=== PATIENT | female | born 1985 | race Caucasian/White ===

== ENCOUNTER 2018-02-09 20:46 | Emergency (ER) | payer BC ==
[2018-02-09 21:01] VITALS: BP 130/95
--- NOTE | 2018-02-09 21:14 | EDM.PDOC ---
ED HPI GENERAL MEDICAL PROBLEM - General Chief Complaint: Skin Complaint Stated Complaint: BUG BIT Time Seen by Provider: 02/09/18 21:03 - History of Present Illness INITIAL COMMENTS - FREE TEXT/NARRATIVE: HISTORY AND PHYSICAL: History of present illness: Patient 32-year-old female presents with concern of possible insect bite to her left forearm with erythema and warmth over the last 24-48 hours. There's been no fever no other trauma or concern patient reports allergies to sulfa Review of systems: As per history of present illness and below otherwise all systems reviewed and negative. Past medical history: As per history of present illness and as reviewed below otherwise noncontributory. Surgical history: As per history of present illness and as reviewed below otherwise noncontributory. Social history: No reported history of drug or alcohol abuse. Family history: As per history of present illness and as reviewed below otherwise noncontributory. Physical exam: HEENT: Atraumatic, normocephalic, pupils reactive, negative for conjunctival pallor or scleral icterus, mucous membranes moist, throat clear, neck supple, nontender, trachea midline. Lungs: Clear to auscultation, breath sounds equal bilaterally, chest nontender. Heart: S1S2, regular, negative for clicks, rubs, or JVD. Abdomen: Soft, nondistended, nontender. Negative for masses or hepatosplenomegaly. Negative for costovertebral tenderness. Pelvis: Stable nontender. Genitourinary: Deferred. Rectal: Deferred. Extremities: Left forearm he has an excoriated area volar aspect with surrounding erythema is actually looks slightly improved from a picture prior there is no significant induration or fluctuance is mild warmth to the touch Neuro: Awake, alert, oriented. Cranial nerves II through XII unremarkable. Cerebellum unremarkable. Motor and sensory unremarkable throughout. Exam nonfocal. Diagnostics: None Therapeutics: None Impression: #1 cellulitis left forearm Definitive disposition and diagnosis as appropriate pending reevaluation and review of above. 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: Psychiatric History: Reports: Anxiety, Depression Immunologic History: Reports: None Other Immunologic History: MRSA positive in the past, states has nasal swab recently and was negative - Infectious Disease History Infectious Disease History: Reports: Chicken Pox - Past Surgical History Head Surgeries/Procedures: Reports: None HEENT Surgical History: Reports: Oral Surgery Female Surgical History: Reports: Breast Implant, Breast Reduction, Other ( See Below) Other Female Surgeries/Procedures: vicki rondon Social & Family History - Tobacco Use Smoking Status *Q: Current Every Day Smoker Years of Tobacco use: 6 Packs/Tins Daily: 0.5 - Caffeine Use Caffeine Use: Reports: Coffee - Recreational Drug Use Recreational Drug Use: Yes Drug Use in Last 12 Months: No ED ROS GENERAL - Review of Systems Review Of Systems: ROS reveals no pertinent complaints other than HPI. ED EXAM, SKIN/RASH Exam: See Below (See dictation) Course - Vital Signs Last Recorded V/S: Last Vital Signs Temp 36.2 C 02/09/18 20:58 Pulse 95 02/09/18 20:58 Resp 12 02/09/18 20:58 BP 130/95 H 02/09/18 20:58 Pulse Ox 95 02/09/18 20:58 Departure - Departure Time of Disposition: 21:14 Disposition: Home, Self-Care 01 Condition: Good Clinical Impression: Cellulitis - Discharge Information *PRESCRIPTION DRUG MONITORING PROGRAM REVIEWED*: Not Applicable *COPY OF PRESCRIPTION DRUG MONITORING REPORT IN PATIENT NANCIE: Not Applicable Referrals: PCP,None [Primary Care Provider] - Additional Instructions: The following information is given to patients seen in the emergency department who are being discharged to home. This information is to outline your options for follow-up care. We provide all patients seen in our emergency department with a follow-up referral. The need for follow-up, as well as the timing and circumstances, are variable depending upon the specifics of your emergency department visit. If you don't have a primary care physician on staff, we will provide you with a referral. We always advise you to contact your personal physician following an emergency department visit to inform them of the circumstance of the visit and for follow-up with them and/or the need for any referrals to a consulting specialist. The emergency department will also refer you to a specialist when appropriate. This referral assures that you have the opportunity for followup care with a specialist. All of these measure are taken in an effort to provide you with optimal care, which includes your followup. Under all circumstances we always encourage you to contact your private physician who remains a resource for coordinating your care. When calling for followup care, please make the office aware that this follow-up is from your recent emergency room visit. If for any reason you are refused follow-up, please contact the [facility] emergency department at and asked to speak to the emergency department charge nurse. Demise as prescribed follow-up private medical doctor 24-48 hours return as needed as discussed
== END 2018-02-09 21:33 | disposition home or self-care (01) ==
LOC: MW.ED 20:46
DX: L03.114 Cellulitis of left upper limb (principal); F17.210 Nicotine dependence, cigarettes, uncomplicated; Z88.5 Allergy status to narcotic agent; Z88.8 Allergy status to other drugs, medicaments and biological substances; Z79.899 Other long term (current) drug therapy
CPT/HCPCS: 99281

== ENCOUNTER 2018-10-21 06:27 | Day surgery (SDC) | payer BC ==
[~2018-10-21 06:27] MED LIST: Sodium Chloride 0.9% 10 ML SDV IV PRN; Sodium Chloride 0.9% 10 ML Syringe FLUSH PRN; Sodium Chloride 0.9% 2.5 ML Syringe FLUSH PRN; ceFAZolin 1 GM in Premix Bag 1 BAG IV ONE
--- NOTE | 2018-10-21 07:03 | PCM.PREANE ---
Preanesthetic Assessment - Anesthesia/Transfusion/Family Hx Anesthesia History: Prior Anesthesia Without Reaction Family History of Anesthesia Reaction: No Transfusion History: No Prior Transfusion(s) - Review of Systems General: No Symptoms Pulmonary: No Symptoms Cardiovascular: No Symptoms Gastrointestinal: No Symptoms Neurological: No Symptoms Other: Reports: None - Physical Assessment NPO Status Date: 10/20/18 NPO Status Time: 22:00 Respiratory Rate: 14 Height: 5 ft 2 in Weight: 67.585 kg ASA Class: 2 Mental Status: Alert & Oriented x3 Airway Class: Mallampati = 2 Dentition: Reports: Normal Dentition Thyro-Mental Finger Breadths: 3 Mouth Opening Finger Breadths: 3 ROM/Head Extension: Full Lungs: Clear to Auscultation, Normal Respiratory Effort Cardiovascular: Regular Rate, Regular Rhythm - Allergies Allergies/Adverse Reactions: Allergies Allergy/AdvReac Type Severity Reaction Status Date / Time codeine Allergy Stomach Verified 10/17/18 08:22 Upset sulfacetamide Allergy Itching Verified 10/17/18 08:22 - Acknowledgements Anesthesia Type Planned: General Anesthesia (ETT) Pt an Appropriate Candidate for the Planned Anesthesia: Yes Alternatives and Risks of Anesthesia Discussed w Pt/Guardian: Yes Pt/Guardian Understands and Agrees with Anesthesia Plan: Yes PreAnesthesia Questionnaire HEENT History: Reports: Other (See Below) Other HEENT History: wears glasses/contacts Cardiovascular History: Reports: None Respiratory History: Reports: None Gastrointestinal History: Reports: Other (See Below) Other Gastrointestinal History: occasional heartburn Genitourinary History: Reports: None 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: : 5 Para: 4 (+ 1 adopted) Musculoskeletal History: Reports: Fracture Other Musculoskeletal History: hx fx left wrist Neurological History: Reports: None Psychiatric History: Reports: Anxiety, Depression Endocrine/Metabolic History: Reports: None Hematologic History: Reports: None Immunologic History: Reports: Other (See Below) Other Immunologic History: MRSA positive in the past, states has nasal swab recently and was negative Oncologic (Cancer) History: Reports: None Dermatologic History: Reports: None - Infectious Disease History Infectious Disease History: Reports: Chicken Pox - Past Surgical History Head Surgeries/Procedures: Reports: None HEENT Surgical History: Reports: Oral Surgery Cardiovascular Surgical History: Reports: None Respiratory Surgical History: Reports: None GI Surgical History: Reports: None Female Surgical History: Reports: Breast Implant, LEEP, Other (See Below) Other Female Surgeries/Procedures: [id number]-[id number] lift 2012 Endocrine Surgical History: Reports: None Neurological Surgical History: Reports: None Musculoskeletal Surgical History: Reports: None Oncologic Surgical History: Reports: None Dermatological Surgical History: Reports: None - SUBSTANCE USE Smoking Status *Q: Current Every Day Smoker Tobacco Use Within Last Twelve Months: Cigarettes Recreational Drug Use History: No - HOME MEDS Home Medications: Home Meds . [No Known Home Meds] 10/17/18 [History] - CURRENT (IN HOUSE) MEDS Current Meds: Current Medications Sodium Chloride (Saline Flush) 10 ml FLUSH ASDIRECTED PRN PRN Reason: Keep Vein Open Sodium Chloride (Saline Flush) 2.5 ml FLUSH ASDIRECTED PRN PRN Reason: Keep Vein Open Sodium Chloride (Normal Saline) 10 ml IV ASDIRECTED PRN PRN Reason: IV Use Discontinued Medications Cefazolin Sodium/Dextrose 1 gm (/ Premix) 50 mls @ 100 mls/hr IV ONETIME ONE Stop: 10/21/18 05:29
[2018-10-21] MEDS ORDERED: Lidocaine 2% 5 ML SDV ONE (07:08)
[2018-10-21] MEDS: Lactated Ringers 1,000 ML IV SCH ×2 (07:20→12:09)
[2018-10-21] MEDS ORDERED: Midazolam 1 MG/ML 2 ML SDV ONE (07:22)
[2018-10-21] MEDS ORDERED: fentaNYL 100 MCG/2 ML SDV ONE ×3 (07:24→09:49)
[2018-10-21] MEDS ORDERED: Lidocaine 2% 100 MG/5 ML Syringe ONE (07:25)
[2018-10-21] MEDS ORDERED: Propofol 200 MG/20 ML SDV ONE (07:28)
[2018-10-21] MEDS ORDERED: Rocuronium 100 MG/10 ML Syringe ONE (07:28)
[2018-10-21] MEDS ORDERED: Fluorescein 5 ML Vial ONE (07:34)
[2018-10-21 07:49] LABS: CHLORIDE,CL 106 mmol/L (98-107); SODIUM,NA 142 mmol/L (136-145)
[2018-10-21] MEDS ORDERED: Midazolam 1 MG/ML 2 ML SDV IVPUSH ONE (07:49)
[2018-10-21] MEDS ORDERED: Glycopyrrolate 0.2 MG/ML SDV ONE (08:46)
[2018-10-21] MEDS ORDERED: ceFAZolin 1 GM Vial ONE (08:47)
[2018-10-21] MEDS ORDERED: Dexamethasone 4 MG/ML 5 ML MDV ONE (08:47)
[2018-10-21] MEDS ORDERED: Ondansetron 4 MG/2 ML SDV ONE ×3 (08:50→09:08)
[2018-10-21] MEDS ORDERED: Furosemide 40 MG/4 ML VIAL ONE (08:54)
[2018-10-21] MEDS ORDERED: Sugammadex Sodium 200 MG/2 ML VIAL ONE (09:07)
[2018-10-21] MEDS ORDERED: Ketorolac 30 MG/ML SDV ONE (09:07)
[2018-10-21] MEDS ORDERED: Ketorolac 30 MG/ML SDV IVPUSH ONE (09:20)
[2018-10-21] MEDS ORDERED: Acetaminophen/oxyCODONE 325-5 MG Tab PO PRN (09:20)
[2018-10-21] MEDS ORDERED: Ondansetron 4 MG/2 ML SDV IVPUSH PRN (09:20)
[2018-10-21] MEDS ORDERED: Promethazine 25 MG/ML SDV IM PRN (09:20)
[2018-10-21] MEDS ORDERED: Naloxone 0.4 MG/ML Syringe IVPUSH PRN (09:25)
[2018-10-21] MEDS ORDERED: 50% Dextrose in Water 50 ML Syringe IVPUSH PRN (09:25)
[2018-10-21] MEDS ORDERED: EPINEPHrine 1:10,000 1 MG/10 ML Syringe IVPUSH PRN (09:25)
[2018-10-21] MEDS ORDERED: Albuterol 0.083% 2.5 MG/3 ML Neb Soln NEB PRN (09:25)
[2018-10-21] MEDS ORDERED: Atropine 0.1 MG/ML 10 ML Syringe IVPUSH PRN ×2 (09:25)
--- NOTE | 2018-10-21 09:28 | PCM.OPNOTE ---
- General Post-Op/Procedure Note Date of Surgery/Procedure: 10/21/18 Operative Procedure(s): TVH/cystoscopy Findings: 8 week uterus, normal appearing ovaries/tubes. Bilateral patent ureters Pre Op Diagnosis: menorrhagia Post-Op Diagnosis: Same Anesthesia Technique: General ET Tube Primary Surgeon: Sasha Kiran Pathology: uterus Fluid Replacement, Intraop: 1,500 EBL in mLs: 100 Complications: none known Condition: Good Free Text/Narrative:: Dictation [id number]
[2018-10-21] MEDS ORDERED: HYDROmorphone 2 MG/ML Syringe ONE (09:29)
[2018-10-21] MEDS: fentaNYL 100 MCG/2 ML SDV IVPUSH PRN ×4 (09:35→10:03)
[2018-10-21] MEDS ORDERED: HYDROmorphone 2 MG/ML SDV IVPUSH PRN (09:38)
[2018-10-21] MEDS: Belladonna Alkaloids/Opium 16.2-30 MG Supp RECTAL PRN ×2 (10:10→17:27)
[2018-10-21] MEDS ORDERED: Acetaminophen 1,000 MG in Premix Bag 1 BAG IV ONE (10:33)
[2018-10-21] MEDS ORDERED: Ketamine 500 mg/10 ML MDV ONE (10:41)
--- NOTE | 2018-10-21 10:48 | PCM.POSTAN ---
POST ANESTHESIA ASSESSMENT - MENTAL STATUS Mental Status: Alert, Oriented - VITAL SIGNS Pulse Rate: 80 SaO2: 98 Resp Rate: 14 Blood Pressure: 118/64 - RESPIRATORY Respiratory Status: Respiratory Rate WNL, Airway Patent, O2 Saturation Stable - CARDIOVASCULAR CV Status: Pulse Rate WNL, Blood Pressure Stable - GASTROINTESTINAL GI Status: No Symptoms - POST OP HYDRATION Hydration Status: Adequate & Stable
[2018-10-21] MEDS: Morphine 4 MG/ML Syringe IVPUSH PRN ×3 (11:32→16:34)
[2018-10-21] MEDS: Ketorolac 30 MG/ML SDV IVPUSH PRN ×2 (11:58→19:32)
--- NOTE | 2018-10-21 12:15 | OR ---
SURGEON: Sasha Kiran M.D. DATE OF PROCEDURE: 10/21/2018 PREOPERATIVE DIAGNOSIS: Menorrhagia. POSTOPERATIVE DIAGNOSIS: Menorrhagia. PROCEDURES: Total vaginal hysterectomy, cystoscopy. ANESTHESIA: General endotracheal anesthesia. FLUIDS: 1500 mL crystalloid. ESTIMATED BLOOD LOSS: 100 mL. COMPLICATIONS: None known. FINDINGS: Approximately eight-week size uterus, normal-appearing tubes and ovaries, bilateral patent ureters. DISPOSITION: The patient to PACU in stable condition. SPECIMENS: To pathology. PROCEDURE DETAILS: Immanuel is a 33-year-old female, who has had ongoing difficulties with menorrhagia. After options have been discussed with her, she would like to proceed with surgical intervention in the form of a hysterectomy. Risks of the procedure have been discussed with her. Proper consent obtained. The patient was taken to the operating room where she underwent general endotracheal anesthesia, was placed in modified dorsal lithotomy position. SCDs to lower extremities. Hernandez to gravity. Was prepped and draped in the usual sterile fashion and received Ancef prophylactically. Time-out was performed. A weighted speculum was introduced in the vagina, anterior [place]. Cervix was visualized, grasped with Tod clamp, tented downward. Cervix was now circumscribed with Bovie cautery anteriorly and posteriorly. The overlying mucosa was dissected away from underlying peritoneum. Posterior peritoneum was tented downward, entered sharply. Longer weighted speculum was replaced with a shorter anteriorly. The anterior peritoneum was also entered with Metzenbaum scissors. [place]s was now placed to retract the bladder away from operative field. The uterosacral ligaments on either side were secured with Khalida clamps, cut and transected, suture tied with 2-0 Vicryl. Remainder of suture will be 2-0 Vicryl unless otherwise indicated. In serial fashion, remaining pedicles were able to be secured with Khalida clamp including the cardinal ligaments, base of the broad ligament, mid broad ligament including the round ligament, upper broad ligament, and then the utero tubo- ovarian pedicles. The utero tubo-ovarian pedicles were secured with a tie and a pass followed by a suture tie. The pedicles were now closely inspected. The uterus was handed off to semiconductor processing technician. Area of oozing along the left utero tubo- ovarian pedicle was able to be secured with a [id number] suture. The base of the left uterosacral ligament had some oozing that was cauterized. Hemostasis thereafter evident. Tubes and ovary inspected, found to be normal in appearance. The cuff was now closed using 0 Vicryl in continuous running locked fashion after securing the uterosacral ligaments on either side to the vaginal mucosa. Cuff was closed and inspected, found to be hemostatic. The patient received IV fluorescein, Lasix. The Hernandez catheter was removed. A cystoscope was introduced using normal saline as distention media, was able to visualize dome of the bladder, which was found to be intact. Trigone was inspected. The left ureteral orifice followed by the right ureteral orifice able to be visualized and fluorescein dyed urine was seen streaming from them, helping to ensure ureteral patency. The bladder was now drained. Hernandez catheter was replaced. The cuff was once again inspected. There was an area of oozing along the midline, which was replicated with a [id number] suture. Hemostasis thereafter evident. Sponge, instrument, needle counts correct x2. The patient had tolerated the procedure well overall. She will go to PACU in stable condition. Specimen to pathology. SCARLET / GRACE /[id number]
[2018-10-21] MEDS ORDERED: Ketamine 500 mg/10 ML MDV IV ONE (13:34)
[2018-10-21] MEDS: Acetaminophen/oxyCODONE 325-5 MG Tab PO PRN ×3 (13:45→21:34)
--- NOTE | 2018-10-21 18:19 | PCM.SN ---
- Free Text/Narrative Note: Patient is still a bit groggy--and requests pain medication. Discussed with her procedure for today and findings. Explained she will have some postoperative pain, but needs to try to allow herself to wake up enough to be more alert. She is encouraged to ambulate. Will remove hollis as urine output has been adequate. VS are stable. Labs for the morning> Exam is reassuring with no CVA tenderness and soft abdomen with good bowel sounds.
[2018-10-21] MEDS: Docusate Sodium 100 MG Cap PO SCH (21:34)
[2018-10-22] MEDS: Acetaminophen/oxyCODONE 325-5 MG Tab PO PRN ×3 (01:15→09:24)
[2018-10-22] MEDS: Ketorolac 30 MG/ML SDV IVPUSH PRN (03:44)
[2018-10-22 06:33] LABS: CHLORIDE,CL 104 mmol/L (98-107); SODIUM,NA 138 mmol/L (136-145)
[2018-10-22 07:36] VITALS: BP 106/68
[2018-10-22] MEDS: Docusate Sodium 100 MG Cap PO SCH (08:30)
--- NOTE | 2018-10-22 09:28 | PCM.SURGPN ---
- General Info Date of Service: 10/22/18 Date of Surgery/Procedure: 10/21/18 POD#: 1 Functional Status: Reports: Pain Controlled, Tolerating Diet, Ambulating, Urinating - Review of Systems General: Denies: Fever, Weakness Pulmonary: Denies: Shortness of Breath Cardiovascular: Denies: Chest Pain, Palpitations, Lightheadedness Gastrointestinal: Reports: Abdominal Pain (well controlled this morning with cramping). Denies: Nausea, Vomiting Genitourinary: Reports: No Symptoms Musculoskeletal: Reports: No Symptoms Skin: Reports: No Symptoms Neurological: Reports: No Symptoms Psychiatric: Reports: No Symptoms - Patient Data Vitals - Most Recent: Last Vital Signs Temp 36.4 C 10/22/18 07:00 Pulse 61 10/22/18 07:00 Resp 12 10/22/18 07:00 BP 106/68 10/22/18 07:00 Pulse Ox 96 10/22/18 07:00 Weight - Most Recent: 67.585 kg I&O - Last 24 Hours: Intake & Output 10/21/18 10/22/18 10/22/18 22:59 06:59 14:59 Intake Total 1064 1650 Output Total 900 1200 Balance 164 450 Lab Results Last 24 Hrs: Laboratory Results - last 24 hr 10/22/18 10/22/18 Range/Units 05:32 05:32 WBC 12.24 H (4.0-11.0) K/uL RBC 3.60 L (4.30-5.90) M/uL Hgb 11.3 L (12.0-16.0) g/dL Hct 34.4 L (36.0-46.0) % MCV 95.6 (80.0-98.0) fL MCH 31.4 (27.0-32.0) pg MCHC 32.8 (31.0-37.0) g/dL RDW Std Deviation 45.9 (28.0-62.0) fl RDW Coeff of Parvin 13 (11.0-15.0) % Plt Count 248 (150-400) K/uL MPV 10.30 (7.40-12.00) fL Neut % (Auto) 66.0 (48.0-80.0) % Lymph % (Auto) 22.2 (16.0-40.0) % [place] % (Auto) 11.2 (0.0-15.0) % Eos % (Auto) 0.4 (0.0-7.0) % Baso % (Auto) 0.2 (0.0-1.5) % Neut # (Auto) 8.1 H (1.4-5.7) K/uL Lymph # (Auto) 2.7 H (0.6-2.4) K/uL [place] # (Auto) 1.4 H (0.0-0.8) K/uL Eos # (Auto) 0.1 (0.0-0.7) K/uL Baso # (Auto) 0.0 (0.0-0.1) K/uL Nucleated RBC % 0.0 /100WBC Nucleated RBCs # 0 K/uL Sodium 138 (136-145) mmol/L Potassium 4.1 (3.5-5.1) mmol/L Chloride 104 (98-107) mmol/L Carbon Dioxide 26.1 (21.0-32.0) mmol/L BUN 10 (7.0-18.0) mg/dL Creatinine 0.8 (0.6-1.0) mg/dL Est Cr Clr Drug Dosing 77.63 mL/min Estimated GFR (MDRD) > 60.0 ml/min Glucose 104 (74-106) mg/dL Calcium 8.8 (8.5-10.1) mg/dL Med Orders - Current: Current Medications Belladonna Alkaloids/Opium (B & O Supprettes No. 15a) 1 supp RECTAL Q6H PRN PRN Reason: Pain Last Admin: 10/21/18 17:27 Dose: 1 supp Docusate Sodium (Colace) 100 mg PO BID [facility] Last Admin: 10/22/18 08:30 Dose: 100 mg Lactated Ringer's (Ringers, Lactated) 1,000 mls @ 125 mls/hr IV ASDIRECTED [facility] Last Admin: 10/21/18 12:09 Dose: 125 mls/hr Ketorolac Tromethamine (Toradol) 30 mg IVPUSH Q6H PRN PRN Reason: Pain (severe 7-10) Stop: 10/26/18 09:20 Last Admin: 10/22/18 03:44 Dose: 30 mg Morphine Sulfate (Morphine) 4 mg IVPUSH Q2H PRN PRN Reason: Pain (severe 7-10) Last Admin: 10/21/18 16:34 Dose: 4 mg Ondansetron HCl (Zofran) 4 mg IVPUSH Q6H PRN PRN Reason: Nausea/Vomiting Oxycodone/Acetaminophen (Percocet 325-5 Mg) 1 tab PO Q4H PRN PRN Reason: Pain (moderate 4-6) Oxycodone/Acetaminophen (Percocet 325-5 Mg) 2 tab PO Q4H PRN PRN Reason: Pain (moderate 4-6) Last Admin: 10/22/18 05:34 Dose: 2 tab Promethazine HCl (Phenergan) 25 mg IM Q6H PRN PRN Reason: Nausea/Vomiting Last Admin: 10/21/18 09:54 Dose: 25 mg Sodium Chloride (Saline Flush) 10 ml FLUSH ASDIRECTED PRN PRN Reason: Keep Vein Open Sodium Chloride (Saline Flush) 2.5 ml FLUSH ASDIRECTED PRN PRN Reason: Keep Vein Open Sodium Chloride (Normal Saline) 10 ml IV ASDIRECTED PRN PRN Reason: IV Use Discontinued Medications Albuterol (Proventil Neb Soln) 2.5 mg NEB ONETIME PRN PRN Reason: Wheezing Atropine Sulfate (Atropine 0.1 Mg/Ml) 0.5 mg IVPUSH ASDIRECTED PRN PRN Reason: Hypo-perfusion Atropine Sulfate (Atropine 0.1 Mg/Ml) 1 mg IVPUSH ASDIRECTED PRN PRN Reason: Hypo-Perfusion Cefazolin Sodium (Ancef) Confirm Administered Dose 1 gm .ROUTE .STK-MED ONE Stop: 10/21/18 08:48 Dexamethasone (Dexamethasone) Confirm Administered Dose 20 mg .ROUTE .STK-MED ONE Stop: 10/21/18 08:48 Dextrose/Water (Dextrose 50% In Water) 50 ml IVPUSH ASDIRECTED PRN PRN Reason: Hypoglycemia Epinephrine HCl (Epinephrine 1:10,000) 1 mg IVPUSH ASDIRECTED PRN PRN Reason: ACLS Guidelines Fentanyl (Sublimaze) Confirm Administered Dose 100 mcg .ROUTE .STK-MED ONE Stop: 10/21/18 07:25 Fentanyl (Sublimaze) Confirm Administered Dose 100 mcg .ROUTE .STK-MED ONE Stop: 10/21/18 09:16 Fentanyl (Sublimaze) 50 - 100 mcg IVPUSH Q5M PRN PRN Reason: Pain Last Admin: 10/21/18 10:03 Dose: 50 mcg Fentanyl (Sublimaze) Confirm Administered Dose 100 mcg .ROUTE .STK-MED ONE Stop: 10/21/18 09:50 Last Admin: 10/21/18 11:44 Dose: Not Given Fluorescein Sodium (Ak-Fluor) Confirm Administered Dose 5 ml .ROUTE .STK-MED ONE Stop: 10/21/18 07:35 Furosemide (Lasix) Confirm Administered Dose 40 mg .ROUTE .STK-MED ONE Stop: 10/21/18 08:55 Glycopyrrolate (Robinul) Confirm Administered Dose 0.4 mg .ROUTE .STK-MED ONE Stop: 10/21/18 08:47 Hydromorphone HCl (Dilaudid) Confirm Administered Dose 2 mg .ROUTE .STK-MED ONE Stop: 10/21/18 09:30 Last Admin: 10/21/18 09:40 Dose: Not Given Hydromorphone HCl (Dilaudid) 1 mg IVPUSH Q10M PRN PRN Reason: Severe Pain Last Admin: 10/21/18 09:30 Dose: 1 mg Cefazolin Sodium/Dextrose 1 gm (/ Premix) 50 mls @ 100 mls/hr IV ONETIME ONE Stop: 10/21/18 05:29 Last Admin: 10/21/18 11:40 Dose: Not Given Acetaminophen (Ofirmev) Confirm Administered Dose 100 mls @ as directed IV .STK- MED ONE Stop: 10/21/18 10:19 Acetaminophen 1,000 mg/ Premix 100 mls @ 400 mls/hr IV NOW ONE Stop: 10/21/18 10:47 Last Admin: 10/21/18 12:12 Dose: 400 mls/hr Ketamine HCl (Ketalar) 20 mg IV ONETIME ONE Stop: 10/21/18 13:35 Last Admin: 10/21/18 14:31 Dose: Not Given Ketamine HCl (Ketalar) Confirm Administered Dose 500 mg .ROUTE .STK-MED ONE Stop: 10/21/18 10:42 Last Admin: 10/21/18 11:42 Dose: Not Given Ketorolac Tromethamine (Toradol) Confirm Administered Dose 30 mg .ROUTE .STK- MED ONE Stop: 10/21/18 09:08 Ketorolac Tromethamine (Toradol) 30 mg IVPUSH ONETIME ONE Stop: 10/21/18 09:21 Last Admin: 10/21/18 09:30 Dose: Not Given Lidocaine (Xylocaine-Mpf 2%) Confirm Administered Dose 5 ml .ROUTE .STK-MED ONE Stop: 10/21/18 07:09 Last Admin: 10/21/18 11:40 Dose: Not Given Lidocaine HCl (Xylocaine 2%) Confirm Administered Dose 100 mg .ROUTE .STK-MED ONE Stop: 10/21/18 07:26 Midazolam HCl (Versed 1 Mg/Ml) Confirm Administered Dose 2 mg .ROUTE .STK-MED ONE Stop: 10/21/18 07:23 Midazolam HCl (Versed 1 Mg/Ml) 2 mg IVPUSH ONETIME ONE Stop: 10/21/18 07:50 Last Admin: 10/21/18 11:41 Dose: Not Given Naloxone HCl (Narcan) 0.1 mg IVPUSH ASDIRECTED PRN PRN Reason: Respiratory Depression Ondansetron HCl (Zofran) Confirm Administered Dose 4 mg .ROUTE .STK-MED ONE Stop: 10/21/18 08:51 Ondansetron HCl (Zofran) Confirm Administered Dose 4 mg .ROUTE .STK-MED ONE Stop: 10/21/18 08:52 Ondansetron HCl (Zofran) Confirm Administered Dose 8 mg .ROUTE .STK-MED ONE Stop: 10/21/18 09:09 Propofol (Diprivan 20 Ml) Confirm Administered Dose 200 mg .ROUTE .STK-MED ONE Stop: 10/21/18 07:29 Rocuronium [place] (Zemuron) Confirm Administered Dose 100 mg .ROUTE .STK-MED ONE Stop: 10/21/18 07:29 Sugammadex Sodium (Bridion) Confirm Administered Dose 200 mg .ROUTE .STK-MED ONE Stop: 10/21/18 09:08 - Exam General: Alert, Oriented Neck: Supple Lungs: Normal Respiratory Effort Cardiovascular: Regular Rate, Regular Rhythm GI/Abdominal Exam: Normal Bowel Sounds, Soft, Non-Tender Extremities: No: Anthony's Sign Skin: Warm, Dry, Intact Neurological: No New Focal Deficit Psy/Mental Status: Alert, Normal Affect - Problem List & Annotations (1) Menorrhagia SNOMED Code(s): 481865299 Code(s): N92.0 - EXCESSIVE AND FREQUENT MENSTRUATION WITH REGULAR CYCLE Status: Acute Current Visit: Yes - Problem List Review Problem List Initiated/Reviewed/Updated: Yes - My Orders Last 24 Hours: Active Orders 24 hr Category Date Time Status Patient Status [ADT] Routine ADT 10/21/18 09:20 Active Antiembolic Devices [RC] PER UNIT ROUTINE Care 10/21/18 09:20 Active Notify Provider Intake and Out [RC] ASDIRECTED Care 10/21/18 09:20 Active Notify Provider Vital Signs [RC] ASDIRECTED Care 10/21/18 09:20 Active Oxygen Therapy [RC] PRN Care 10/21/18 09:25 Active RT Incentive Spirometry [RC] Q2HWA Care 10/21/18 09:20 Active Ready for Discharge [RC] PER UNIT ROUTINE Care 10/22/18 09:24 Ordered Remove Hernandez Catheter [Urinary Catheter Removal] [RC] Care 10/21/18 18:48 Active Per Unit Routine Up With Assistance [RC] PER UNIT ROUTINE Care 10/21/18 09:20 Active Up ad Fabiola [RC] PER UNIT ROUTINE Care 10/21/18 09:20 Active Regular Diet [DIET] Diet 10/21/18 Lunch Active Acetaminophen/oxyCODONE [Percocet 325-5 MG] Med 10/21/18 09:20 Active 1 tab PO Q4H PRN Acetaminophen/oxyCODONE [Percocet 325-5 MG] Med 10/21/18 09:20 Active 2 tab PO Q4H PRN Belladonna/Opium [B & O Supprettes No. 15A] Med 10/21/18 09:22 Active 1 supp RECTAL Q6H PRN Docusate Sodium [Colace] Med 10/21/18 21:00 Active 100 mg PO BID Ketorolac [Toradol] Med 10/21/18 09:20 Active 30 mg IVPUSH Q6H PRN Morphine Med 10/21/18 09:20 Active 4 mg IVPUSH Q2H PRN Ondansetron [Zofran] Med 10/21/18 09:20 Active 4 mg IVPUSH Q6H PRN Promethazine [Phenergan] Med 10/21/18 09:20 Active 25 mg IM Q6H PRN Peripheral IV Discontinue [OM.PC] Routine Oth 10/21/18 09:20 Ordered Sequential Compression Device [OM.PC] Per Unit Routine Oth 10/21/18 09:20 Ordered Resuscitation Status Routine Resus Stat 10/21/18 09:20 Ordered Medication Orders Belladonna Alkaloids/Opium (B & O Supprettes No. 15a) 1 supp RECTAL Q6H PRN PRN Reason: Pain Last Admin: 10/21/18 17:27 Dose: 1 supp Admin: 10/21/18 10:10 Dose: 1 supp Docusate Sodium (Colace) 100 mg PO BID [facility] Last Admin: 10/22/18 08:30 Dose: 100 mg Admin: 10/21/18 21:34 Dose: 100 mg Lactated Ringer's (Ringers, Lactated) 1,000 mls @ 125 mls/hr IV ASDIRECTED [facility] Last Admin: 10/21/18 12:09 Dose: 125 mls/hr Infusion: 10/21/18 12:09 Dose: 125 mls/hr Admin: 10/21/18 07:20 Dose: 125 mls/hr Ketorolac Tromethamine (Toradol) 30 mg IVPUSH Q6H PRN PRN Reason: Pain (severe 7-10) Stop: 10/26/18 09:20 Last Admin: 10/22/18 03:44 Dose: 30 mg Admin: 10/21/18 19:32 Dose: 30 mg Admin: 10/21/18 11:58 Dose: 30 mg Morphine Sulfate (Morphine) 4 mg IVPUSH Q2H PRN PRN Reason: Pain (severe 7-10) Last Admin: 10/21/18 16:34 Dose: 4 mg Admin: 10/21/18 14:26 Dose: 4 mg Admin: 10/21/18 11:32 Dose: 4 mg Ondansetron HCl (Zofran) 4 mg IVPUSH Q6H PRN PRN Reason: Nausea/Vomiting Oxycodone/Acetaminophen (Percocet 325-5 Mg) 1 tab PO Q4H PRN PRN Reason: Pain (moderate 4-6) Oxycodone/Acetaminophen (Percocet 325-5 Mg) 2 tab PO Q4H PRN PRN Reason: Pain (moderate 4-6) Last Admin: 10/22/18 05:34 Dose: 2 tab Admin: 10/22/18 01:15 Dose: 2 tab Admin: 10/21/18 21:34 Dose: 2 tab Admin: 10/21/18 17:25 Dose: 2 tab Admin: 10/21/18 13:45 Dose: 2 tab Promethazine HCl (Phenergan) 25 mg IM Q6H PRN PRN Reason: Nausea/Vomiting Last Admin: 10/21/18 09:54 Dose: 25 mg Sodium Chloride (Saline Flush) 10 ml FLUSH ASDIRECTED PRN PRN Reason: Keep Vein Open Sodium Chloride (Saline Flush) 2.5 ml FLUSH ASDIRECTED PRN PRN Reason: Keep Vein Open Sodium Chloride (Normal Saline) 10 ml IV ASDIRECTED PRN PRN Reason: IV Use - Assessment Assessment (Free Text/Narrative):: POD 1 status post TVH/cystoscopy - Plan Plan (Free Text/Narrative):: Patient's VS are stable and labs are reassuring. She is ambulating and voiding. Bleeding vaginally is scant. Pain is well controlled today. She feels ready to go home. Discharge instructions reviewed. Follow up at [facility] 2 and 6 weeks. May use OTC ibuprofen and advise colace twice daily. Infection and bleeding warnings reviewed. Discharge to home.
== END 2018-10-22 11:05 | disposition home or self-care (01) ==
LOC: MW.SDS 06:27 → MW.MS 09:59 → MW.SDS 10-22 11:05
PROVIDERS: ATTEND Obstetrics & Gynecology
DX: N84.0 Polyp of corpus uteri (principal); F17.210 Nicotine dependence, cigarettes, uncomplicated; Z88.2 Allergy status to sulfonamides; Z88.5 Allergy status to narcotic agent; Z80.49 Family history of malignant neoplasm of other genital organs
CPT/HCPCS: 36415; 58260; 80048; 84703; 85025; 85027; 86850; 86900; 86901; 88307; A9270; J0131; J0690; J1100; J1170; J1885; J1940; J2001; J2250; J2270; J2405; J2550; J2704; J3010; J3490; J7120

== ENCOUNTER 2019-05-10 22:55 | Emergency (ER) | payer BC ==
--- NOTE | 2019-05-10 23:22 | EDM.PDOC ---
ED HPI GENERAL MEDICAL PROBLEM - General Chief Complaint: Behavioral/Psych Stated Complaint: MED. CLEARANCE Time Seen by Provider: 05/10/19 23:05 - History of Present Illness INITIAL COMMENTS - FREE TEXT/NARRATIVE: HISTORY AND PHYSICAL: History of present illness: The patient is a 33-year-old female with a history of depression for which she has not taken medication in many years, at least 4-5 nor has she seen a counselor 2012 and presents with police after she was in a car with her brother and was making suicidal statements and her brother got out of his car at a stoplight and flagged down the police to have her brought here to the ED. The patient says she has been going through a lot mostly with her relationship with her and she still struggles with the of her sister which occurred back in 2012, after which she saw one of our counselors here and was started on some medication. She said that she initially tried Zoloft at that time and then was switched to a different med none of which seemed to help and then she seemed to be doing better so she stopped following up with a counselor and did not take the meds anymore. She said that she has not worked any these problems out or sought treatment. The patient does smoke cigarettes and denies drug use and does admit to drinking alcohol tonight but is not a habitual alcohol user. She says that she has children and there are not issues with them but she keeps repeating during my interview that "I am just finished" and" I need to end it". She said she did not take an overdose tonight or attempt to kill herself but she says that she has every intention of doing so when she is able as she does not feel like her problems have solutions. She exhibits hopelessness on my evaluation. She has never had an inpatient admission. She says that she has never attempted to kill herself but has out of it often suddenly and definitely had intention tonight per the police officers at bedside and her brother with what he told them and his concerns. She denies any medical or systemic issues and has no abdominal pain nausea vomiting diarrhea fevers chills or upper respiratory infection symptoms. She has been eating and drinking normally but did not eat very much yesterday. She has a history of a total vaginal hysterectomy but no other abdominal surgical procedures. The patient is very tearful and crying on my evaluation but the per being seen as that she does not want to continue living and that she will figure out a way to stop living once area she says that things have been gradually escalating and tonight seems to have come to a head with the situation and events with her brother in the car. According to the police who brought her here to the hospital she repeatedly said to them that she wanted to harm herself and that she didn't want to continue to live and that she was having a lot of social issues and relationship problems which are all culminating. Review of systems: As per history of present illness and below otherwise all systems reviewed and negative. Past medical history: As per history of present illness and as reviewed below otherwise noncontributory. Surgical history: As per history of present illness and as reviewed below otherwise noncontributory. Social history: No reported history of drug or alcohol abuse. Family history: As per history of present illness and as reviewed below otherwise noncontributory. Physical exam: Gen.: Well-developed well-nourished female who is tearful and evaluation but ambulatory and moving all extremities exhibiting no distress. She speaks clearly without slurring speech and there is a smell of alcohol on her breath. Vital signs are noted by me HEENT: Atraumatic, normocephalic, pupils reactive, sclera are injected the patient is crying, negative for conjunctival pallor or scleral icterus, mucous membranes moist, throat clear, neck supple, nontender, trachea midline. there is no cervical adenopathy Lungs: Clear to auscultation, breath sounds equal bilaterally, chest nontender. Heart: S1S2, regular, negative for clicks, rubs, or JVD. Abdomen: Soft, nondistended, nontender. Negative for masses or hepatosplenomegaly. Negative for costovertebral tenderness. Pelvis: Stable nontender. Genitourinary: Deferred. Rectal: Deferred. Extremities: Atraumatic, negative for cords or calf pain. Neurovascular unremarkable. full range of motion without defects or deformities Neuro: Awake, alert, oriented. Cranial nerves II through XII unremarkable. Cerebellum unremarkable. Motor and sensory unremarkable throughout. Exam nonfocal. Diagnostics: EKG CBC CMP TSH Tylenol and aspirin levels alcohol level UA with reflex UDS Therapeutics: gabe Dolan was very upfront forthcoming with the patient letting her know that at this point she would eat to be transferred to get help on a more emergent basis due to tonight's events. She says she states understanding There are no available beds at [facility] in [facility]. There is availability for transfer to [facility] and the case was discussed with Dr. Cleaning, the psychiatrist aeronautical inspector, at 2352 PM. She is aware of the details around this case and accepts the patient for transfer. We will arrange for ground transportation and are currently waiting the remainder of her blood work I will follow-up prior to departure. I discussed with the patient these phone calls and the need for the transfer and location. An GERMAN has been performed Impression: Exacerbation of depression, suicidal ideation Recent alcohol use Definitive disposition and diagnosis as appropriate pending reevaluation and review of above. - Related Data Allergies Allergy/AdvReac Type Severity Reaction Status Date / Time codeine Allergy Stomach Verified 05/10/19 23:07 Upset sulfacetamide Allergy Itching Verified 05/10/19 23:07 Home Meds: Home Meds . 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: Musculoskeletal History: Reports: Fracture Other Musculoskeletal History: hx fx left wrist Neurological History: Reports: None Psychiatric History: Reports: Anxiety, Depression Endocrine/Metabolic History: Reports: None Hematologic History: Reports: None Immunologic History: Reports: Other (See Below) Other Immunologic History: MRSA positive in the past, states has nasal swab recently and was negative Oncologic (Cancer) History: Reports: None Dermatologic History: Reports: None - Infectious Disease History Infectious Disease History: Reports: Chicken Pox - Past Surgical History Head Surgeries/Procedures: Reports: None HEENT Surgical History: Reports: Oral Surgery Cardiovascular Surgical History: Reports: None Respiratory Surgical History: Reports: None GI Surgical History: Reports: None Female Surgical History: Reports: Breast Implant, LEEP, Other (See Below) Other Female Surgeries/Procedures: [id number] lift 2012 Endocrine Surgical History: Reports: None Neurological Surgical History: Reports: None Musculoskeletal Surgical History: Reports: None Oncologic Surgical History: Reports: None Dermatological Surgical History: Reports: None Social & Family History - Caffeine Use Caffeine Use: Reports: Coffee ED ROS GENERAL - Review of Systems Review Of Systems: Comprehensive ROS is negative, except as noted in HPI. ED EXAM, GENERAL - Physical Exam Exam: See Below (See dictation) Course - Vital Signs Last Recorded V/S: Last Vital Signs Temp 36.0 C 05/10/19 23:53 Pulse 88 05/10/19 23:53 Resp 16 05/10/19 23:53 BP 107/69 05/10/19 23:53 Pulse Ox 96 05/10/19 23:53 - Orders/Labs/Meds Orders: Active Orders 24 hr Category Date Time Status EKG Documentation Completion [RC] STAT Care 05/10/19 23:13 Active ACETAMINOPHEN [CHEM] Stat Lab 05/10/19 23:35 Received COMPREHENSIVE METABOLIC PN,CMP [CHEM] Stat Lab 05/10/19 23:35 Received ETHANOL BLOOD MEDICAL [CHEM] Stat Lab 05/10/19 23:35 Received SALICYLATE [CHEM] Stat Lab 05/10/19 23:35 Received TSH [CHEM] Stat Lab 05/10/19 23:35 Received Labs: Laboratory Tests 05/10/19 05/10/19 05/10/19 Range/Units 23:14 23:22 23:35 WBC 9.99 (4.0-11.0) K/uL RBC 4.62 (4.30-5.90) M/uL Hgb 15.0 (12.0-16.0) g/dL Hct 43.5 (36.0-46.0) % MCV 94.2 (80.0-98.0) fL MCH 32.5 H (27.0-32.0) pg MCHC 34.5 (31.0-37.0) g/dL RDW Std Deviation 44.2 (28.0-62.0) fl RDW Coeff of Parvin 13 (11.0-15.0) % Plt Count 288 (150-400) K/uL MPV 9.50 (7.40-12.00) fL Neut % (Auto) 61.1 (48.0-80.0) % Lymph % (Auto) 27.5 (16.0-40.0) % [place] % (Auto) 9.5 (0.0-15.0) % Eos % (Auto) 1.4 (0.0-7.0) % Baso % (Auto) 0.5 (0.0-1.5) % Neut # (Auto) 6.1 H (1.4-5.7) K/uL Lymph # (Auto) 2.8 H (0.6-2.4) K/uL [place] # (Auto) 1.0 H (0.0-0.8) K/uL Eos # (Auto) 0.1 (0.0-0.7) K/uL Baso # (Auto) 0.1 (0.0-0.1) K/uL Nucleated RBC % 0.0 /100WBC Nucleated RBCs # 0 K/uL Urine Color YELLOW Urine Appearance CLEAR Urine pH 5.5 (5.0-8.0) Ur Specific [place] <= 1.005 (1.001-1.035) Urine Protein NEGATIVE (NEGATIVE) mg/dL Urine Glucose (UA) NEGATIVE (NEGATIVE) mg/dL Urine Ketones NEGATIVE (NEGATIVE) mg/dL Urine Occult Blood NEGATIVE (NEGATIVE) Urine Nitrite NEGATIVE (NEGATIVE) Urine Bilirubin NEGATIVE (NEGATIVE) Urine Urobilinogen 0.2 (<2.0) EU/dL Ur Leukocyte Esterase NEGATIVE (NEGATIVE) Urine Opiates Screen NEGATIVE (NEGATIVE) Ur Oxycodone Screen NEGATIVE (NEGATIVE) Urine Methadone Screen NEGATIVE (NEGATIVE) Ur Barbiturates Screen NEGATIVE (NEGATIVE) Ur Phencyclidine Scrn NEGATIVE (NEGATIVE) Ur Amphetamine Screen NEGATIVE (NEGATIVE) U Methamphetamines Scrn NEGATIVE (NEGATIVE) U Benzodiazepines Scrn NEGATIVE (NEGATIVE) U Cocaine Metab Screen NEGATIVE (NEGATIVE) U Marijuana (THC) Screen NEGATIVE (NEGATIVE) Meds: Medications Discontinued Medications Generic Name Dose Route Start Last Admin Trade Name Freq PRN Reason Stop Dose Admin Nicotine 14 mg 05/10/19 23:39 05/10/19 23:47 Habitrol TRDERM 05/10/19 23:40 14 mg ONETIME ONE Administration Departure - Departure Time of Disposition: 23:56 Disposition: DC/Tfer to Psych Hosp/Unit 65 Condition: Fair Clinical Impression: Depressive disorder, Suicidal ideation - Discharge Information Referrals: PCP,None [Primary Care Provider] - Forms: ED Department Discharge - My Orders Last 24 Hours: My Active Orders 05/10/19 23:13 EKG Documentation Completion [RC] STAT 05/10/19 23:35 ACETAMINOPHEN [CHEM] Stat COMPREHENSIVE METABOLIC PN,CMP [CHEM] Stat ETHANOL BLOOD MEDICAL [CHEM] Stat SALICYLATE [CHEM] Stat TSH [CHEM] Stat - Assessment/Plan Last 24 Hours: My Active Orders 05/10/19 23:13 EKG Documentation Completion [RC] STAT 05/10/19 23:35 ACETAMINOPHEN [CHEM] Stat COMPREHENSIVE METABOLIC PN,CMP [CHEM] Stat ETHANOL BLOOD MEDICAL [CHEM] Stat SALICYLATE [CHEM] Stat TSH [CHEM] Stat
[2019-05-10] MEDS ORDERED: Nicotine 14 MG/24 Hr Patch TRDERM ONE (23:39)
[2019-05-11 00:10] LABS: BLOOD UREA NITROGEN,BUN 6 mg/dL (7.0-18.0); CARBON DIOXIDE,CO2 26.2 mmol/L (21.0-32.0); CHLORIDE,CL 101 mmol/L (98-107); GLUCOSE RANDOM 93 mg/dL (74-106); POTASSIUM,K 3.7 mmol/L (3.5-5.1); SODIUM,NA 138 mmol/L (136-145)
[2019-05-11 00:11] LABS: ACETAMINOPHEN <2.0 ug/mL
[2019-05-11] MEDS ORDERED: LORazepam 1 MG Tab PO ONE (00:46)
[2019-05-11 01:09] VITALS: BP 134/89; PULSE 106
== END 2019-05-11 01:05 ==
LOC: MW.ED 22:55
DX: F32.9 Major depressive disorder, single episode, unspecified (principal); Z72.89 Other problems related to lifestyle; Z88.5 Allergy status to narcotic agent; Z88.2 Allergy status to sulfonamides
CPT/HCPCS: 36415; 80053; 80305; 80320; 80329; 81003; 83735; 84443; 85025; 93005; 99285; A9270; 99284; G0480